=== PATIENT | female | born 1995 | race Caucasian/White ===

== ENCOUNTER 2024-03-23 13:11 | Outpatient (CLI) | payer BC ==
[~2024-03-23 13:11] MED LIST: CLIN-97 PO; IBUP-1984 PO; NO HOME MEDS; PRED20TA PO
[2024-03-23 14:01] LABS: BASOPHILS % (AUTO) 0.2 % (0-1); EOSINOPHILS # (AUTO) 0.2 X10'3 (0-0.9); EOSINOPHILS % (AUTO) 1.9 % (0-6); HEMATOCRIT 42.5 % (35.0-45.0); HEMOGLOBIN 14.2 g/dl (12.0-16.0); LYMPHOCYTES # (AUTO) 3.7 X10'3 (1.1-4.8); LYMPHOCYTES % (AUTO) 34.8 % (21-51); MEAN CORPUSCULAR HEMOGLOBIN 28.6 PG (27.0-31.0); MEAN CORPUSCULAR HGB CONC 33.5 g/dL (33.0-36.5); MEAN CORPUSCULAR VOLUME 85.3 FL (78-98); MEAN PLATELET VOLUME 8.7 FL (7.4-10.4); MONOCYTES # (AUTO) 0.9 X10'3 (0-0.9); MONOCYTES % (AUTO) 8.5 % (2-12); NEUTROPHILS # (AUTO) 5.8 X10'3 (1.8-7.7); NEUTROPHILS % (AUTO) 54.6 % (42-75); PLATELET COUNT 390 X10'3 (140-440); RED BLOOD COUNT 4.98 X10'6 (4.20-5.60); RED CELL DISTRIBUTION WIDTH 13.3 % (11.5-14.5); WHITE BLOOD COUNT 10.7 X10'3 (4.5-11.0)
[2024-03-23 14:28] LABS: HCG SERUM QL NEGATIVE
[2024-03-23 14:32] LABS: ALANINE AMINOTRANSFERASE 21 U/L (12-78); ALBUMIN 3.7 G/DL (3.4-5.0); ALBUMIN/GLOBULIN RATIO 0.8 (1.1-1.5); ALKALINE PHOSPHATASE 76 IU/L (46-116); ANION GAP 11 (8-16); ASPARTATE AMINO TRANSFERASE 18 U/L (10-37); BILIRUBIN,TOTAL 0.6 MG/DL (0.1-1.0); BLOOD UREA NITROGEN 8 MG/DL (7-18); BUN/CREATININE RATIO 10.4 (10.0-20.0); CALCIUM 9.2 MG/DL (8.5-10.1); CHLORIDE 101 MMOL/L (99-107); CHOL/HDL RATIO 4.3 (0.00-4.99); CHOLESTEROL 199 MG/DL (0-200); CREATININE 0.77 MG/DL (0.40-0.90); GLUCOSE 80 MG/DL (70-104); HDL CHOLESTEROL 46 MG/DL (35-60); LDL CHOLESTEROL 130 MG/DL (50-100); POTASSIUM 3.9 MMOL/L (3.5-5.1); SODIUM 135 MMOL/L (135-145); TOTAL CARBON DIOXIDE 23.4 MMOL/L (24-32); TOTAL PROTEIN 8.3 G/DL (6.4-8.2); TRIGLYCERIDES 112 MG/DL (20-135); eGFR 89 ML/MIN
[2024-03-23 15:22] LABS: THYROID STIMULATING HORMONE 3.33 ulU/ml (0.34-4.50)
[2024-03-25 15:20] LABS: FSH, SERUM 5.5 mIU/mL (.); LUTEINIZING HORMONE 12.6 mIU/mL (.); PROGESTERONE 0.1 ng/mL (.); TESTOSTERONE, SERUM 40 ng/dL (13-71); THYROXINE (T4) 8.8 ug/dL (4.5-12.0)
[2024-03-28 05:44] LABS: ESTROGENS TOTAL 472 pg/mL (.)
[2024-03-28 07:23] LABS: IgE Egg White 0.18 kU/L (Class 0/I)
== END 2024-03-23 23:59 | disposition home or self-care (01) ==
LOC: RAD 13:11
PROVIDERS: ATTEND Nurse Practitioner Family
DX: Z13.1 Encounter for screening for diabetes mellitus (principal); Z13.220 Encounter for screening for lipoid disorders; Z13.0 Encounter for screening for diseases of the blood and blood-forming organs and certain disorders involving the immune mechanism; N92.6 Irregular menstruation, unspecified; R21 Rash and other nonspecific skin eruption; L50.9 Urticaria, unspecified
CPT/HCPCS: 36415; 80053; 80061; 82672; 83001; 83002; 84144; 84402; 84403; 84436; 84443; 84703; 85025; 86003